=== PATIENT | female | born 1955 | race African-American/Black ===

== ENCOUNTER 2017-06-09 15:08 | Emergency (ER) | payer OTHER ==
[2017-06-09] MEDS ORDERED: Ketorolac Tromethamine 30 MG/ML VIAL ONE (17:20)
--- NOTE | 2017-06-09 17:35 | RAD ---
THORACIC SPINE THREE VIEWS: 06/09/17 HISTORY: Back pain. FINDINGS: There are twelve thoracic type vertebrae. Pedicles are intact. Vertebral body heights and alignment a re maintained. Mild osteophytosis is present. IMPRESSION: Mild thoracic spondylosis. No evidence of compression fracture. POS: [facility]
== END 2017-06-09 17:43 | disposition home or self-care (01) ==
LOC: ERS 15:08
DX: M54.6 Pain in thoracic spine (principal); I10 Essential (primary) hypertension; I25.10 Atherosclerotic heart disease of native coronary artery without angina pectoris; F20.9 Schizophrenia, unspecified; F17.210 Nicotine dependence, cigarettes, uncomplicated; V43.62XA Car passenger injured in collision with other type car in traffic accident, initial encounter
CPT/HCPCS: 72072; 96372; J1885

== ENCOUNTER 2017-09-23 13:40 | Emergency (ER) | payer SELFPAY | END 2017-09-23 15:05 | disposition home or self-care (01) | LOC: ERS 13:40 | DX: N61.1 Abscess of the breast and nipple (principal); I25.10 Atherosclerotic heart disease of native coronary artery without angina pectoris; I10 Essential (primary) hypertension; F20.9 Schizophrenia, unspecified; F17.210 Nicotine dependence, cigarettes, uncomplicated; Z79.899 Other long term (current) drug therapy | CPT/HCPCS: 99283 ==

== ENCOUNTER → 2018-03-14 | Day surgery (SDC) | payer OTHER ==
--- NOTE | 2018-03-14 08:30 | MMO ---
STEREOTACTIC LEFT BREAST CALCIFICATION BIOPSY: The patient was brought to the stereo suite. All questions were answered. Informed consent was obta ined. Timeout performed. The patient's left breast was prepped and draped in normal sterile fashion. Using stereotactic rocky nce, the left breast calcifications were accessed using a 10-gauge needle. A total of 6 cores were o btained. Calcifications were seen in the sample. The patient tolerated the procedure well without c omplication and clip was placed. IMPRESSION: Technically successful stereotactic biopsy. POS: [facility]
== END ==
LOC: MAMMO 06:55
PROVIDERS: ATTEND Internal Medicine
PROC: 0HBU3ZX Excision of Left Breast, Percutaneous Approach, Diagnostic (ICD-10-PCS; principal; 2018-03-14)
DX: N60.22 Fibroadenosis of left breast (principal); N62 Hypertrophy of breast
CPT/HCPCS: 19081; 76098; 88305; 89060

== ENCOUNTER 2019-09-20 13:46 | Outpatient (CLI) | payer MEDICARE ==
--- NOTE | 2019-09-20 15:41 | MMO ---
Bilateral MAMMO Bilat Screen [facility]. CLINICAL HISTORY: Patient is 64 years old and is seen for screening. The patient has no family history of breast cancer. The patient has no personal history of cancer. The patient has a history of left Stereotatic Biopsy in February, - benign. VIEWS: The views performed were: bilateral craniocaudal with tomosynthesis; bilateral mediolateral oblique with tomosynthesis; and right exaggerated craniocaudal. FILMS COMPARED: The present examination has been compared to prior imaging studies performed at [facility] on 08/06/2010 and 12/19/2017. This study has been interpreted with the assistance of computer-aided detection. MAMMOGRAM FINDINGS: The breasts are heterogeneously dense, which could obscure a lesion on mammography. Finding 1: There are stable benign appearing calcifications seen in both breasts. Finding 2: There is a stable biopsy clip seen in the left breast. Finding 3: Bilateral stable subarreolar dilated ducts There are no suspicious masses, suspicious calcifications, or new areas of architectural distortion. IMPRESSION: THERE IS NO MAMMOGRAPHIC EVIDENCE OF MALIGNANCY. A ROUTINE FOLLOW-UP MAMMOGRAM IN 1 YEAR IS RECOMMENDED. THE RESULTS OF THIS EXAM WERE SENT TO THE PATIENT. ACR BI-RADS Category 2 - Benign finding MAMMOGRAPHY NOTE: 1. A negative mammogram report should not delay a biopsy if a dominant of clinically suspicious mass is present. 2. Approximately 10% to 15% of breast cancers are not detected by mammography. 3. Adenosis and dense breasts may obscure an underlying neoplasm. Reported by: PRAVEEN STARR MD Electonically Signed: [id number]
== END 2019-09-20 13:47 | disposition home or self-care (01) ==
LOC: BICMAMMO 13:46
PROVIDERS: ATTEND Student in an Organized Health Care Education/Training Program
DX: Z12.31 Encounter for screening mammogram for malignant neoplasm of breast (principal); Z91.89 Other specified personal risk factors, not elsewhere classified
CPT/HCPCS: 77063; 77067